=== PATIENT | male | born 2000 | race Two or more races ===

== ENCOUNTER 2021-08-16 14:13 | Emergency (ER) | payer SELFPAY ==
[~2021-08-16] VITALS: Ht 180.3 cm; Wt 66.7 kg
[2021-08-16 14:51] VITALS: BP 135/82
[2021-08-16] MEDS ORDERED: HYDROcodone-ACET 5/325MG TAB PO ONE (15:45)
[2021-08-16] MEDS ORDERED: HYDR-4902 PO (16:12)
== END 2021-08-16 16:29 | disposition home or self-care (01) ==
LOC: ER 14:13
DX: S42.021A Displaced fracture of shaft of right clavicle, initial encounter for closed fracture (principal); S80.811A Abrasion, right lower leg, initial encounter; V86.55XA Driver of 3- or 4- wheeled all-terrain vehicle (ATV) injured in nontraffic accident, initial encounter; Y93.89 Activity, other specified; Y92.89 Other specified places as the place of occurrence of the external cause; Y99.8 Other external cause status
CPT/HCPCS: 71045; 73000